=== PATIENT | female | born 2000 | race Caucasian/White ===

== ENCOUNTER 2022-01-21 23:11 | Emergency (ER) | payer BC, MEDICAID ==
[2022-01-21 23:26] VITALS: BP 110/75
--- NOTE | 2022-01-21 23:56 | ED Head Injury ---
General Chief Complaint: Head/Cervical Problems Stated Complaint: POSS CONCUSSION,FALL OUT OF CHAIR Nursing Triage Note: pt presents with reports of falling backwards while in chair around 2100. pt stated "i dont know if i hit my head or not but i think i have a concussion". pt reports photophobia, h/a and nausea since the fall. 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 DID NOT REPORT TO EMPLOYER FINISHED HER SHIFT, GOT OFF WORK AT 2200 AND THEN CAME HERE HAS NOT TAKEN ANYTHING FOR PAIN LMP--NOW. PCP: ALFREDO HARRIS AT [place]. PT IS PSU STUDENT Allergies and Home Medications Allergies Coded Allergies: No Known Drug Allergies (Unverified , 01/21/22) Patient Home Medication List Home Medication List Reviewed: Yes Review of Systems Review of Systems Constitutional: see HPI, dizziness Eyes: No Symptoms Reported Ears, Nose, Mouth, Throat: no symptoms reported Respiratory: no symptoms reported Cardiovascular: no symptoms reported Gastrointestinal: see HPI, nausea; No vomiting Genitourinary: no symptoms reported : No LMP: Jan 21, 2022 Musculoskeletal: see HPI, neck pain Skin: no symptoms reported Psychiatric/Neurological: See HPI; Denies Cognitive Dysfunction; Headache; Denies Numbness, Denies Petit Mal Seizures, Denies Tingling, Denies Tonic Clonic Seizures, Denies Weakness Endocrine: No Symptoms Reported Hematologic/Lymphatic: No Symptoms Reported Past Xlysklx-Ssdngc-Cavwaj Hx Patient Social History Tobacco Use?: No Substance use?: No Alcohol Use?: No Pt feels they are or have been: No Immunizations Up To Date Influenza Vaccine Up-to-Date: No; Not Current First/Initial COVID19 Vaccinat: unknown date COVID19 Vaccine [employer] 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: [employer] Seasonal Allergies Seasonal Allergies: Yes Past Medical History Surgeries: No Respiratory: Yes Asthma Cardiac: No Neurological: No : No Last Menstrual Period: Jan 21, 2022 Reproductive Disorders: No Genitourinary: No Gastrointestinal: No Musculoskeletal: No Endocrine: No HEENT: No (GLASSES) Cancer: No Psychosocial: Yes Anxiety, Depression Integumentary: No Blood Disorders: No Physical Exam Vital Signs Vital Signs - First Documented 01/21/22 23:26 Temp 37.0 Pulse 89 Resp 18 B/P (MAP) 110/75 (87) Pulse Ox 99 Capillary Refill : Height, Weight, BMI Height: '" Weight: lbs. oz. kg; BMI Method: General Appearance: WD/WN, no apparent distress HEENT: PERRL/EOMI, normal ENT inspection, TMs normal, pharynx normal, other (NO EXTERNAL EVIDENCE OF TRAUMA. DIFFUSE TENDERNESS TO BACK AND SIDES OF HEAD) Neck: tender lateral, tender midline, other (DIFFUSE POSTERIOR NECK TENDERNESS) Cardiovascular: regular rate, rhythm, no murmur Respiratory: normal breath sounds, no respiratory distress, no accessory muscle use Gastrointestinal: non tender, soft Back: normal inspection, no CVA tenderness, no vertebral tenderness Extremities: normal range of motion, non-tender, normal inspection, no pedal edema, no calf tenderness, normal capillary refill Psychiatric: alert, oriented x 3 Crainal Nerves: normal hearing, normal speech, PERRL Coordination/Gait: normal gait Motor/Sensory: no motor deficit, no sensory deficit Skin: normal color, warm/dry; No ecchymosis; other (NO EXTERNAL EVIDENCE OF TRAUMA ANYWHERE) Nancy Coma Score Best Eye Response: (4) Open Spontaneously Best Verbal Response: (5) Oriented Best Motor Response: (6) Obeys Commands Fountain Total: 15 Progress/Results/Core Measures Results/Orders My Orders Orders - GOPI SHARMA DO Ct Head/Cervical Spine Wo (01/21/22 23:49) Vital Signs/I&O 01/21/22 23:26 Temp 37.0 Pulse 89 Resp 18 B/P (MAP) 110/75 (87) Pulse Ox 99 Blood Pressure Mean: 87 Progress Progress Note : Progress Note UNEVENTFUL ER STAY WALKS UPRIGHT AND MOVES QUICKLY WITHOUT DIFFICULTY Diagnostic Imaging Comments CT HEAD/CERVICAL SPINE--PER STAT RAD VIA FAX AT 0100 NO ACUTE PROCESS Reviewed: Reviewed by Me Departure Impression Primary Impression: Minor head injury without loss of consciousness Additional Impression: Neck muscle strain Disposition: HOME, SELF-CARE Condition: Stable Departure-Patient Inst. Decision time for Depature: 01:03 Referrals: NO,LOCAL PHYSICIAN (PCP/Family) Primary Care Physician Patient Instructions: Minor Head Injury, Adult ED, Cervical Sprain ED Add. Discharge Instructions: LOTS OF CLEAR LIQUIDS TYLENOL AND MOTRIN NEEDED FOR PAIN FOLLOW UP WITH [facility] IN 2-3 DAYS IF NO BETTER, RETURN TO ER IF WORSE All discharge instructions reviewed with patient and/or family. Voiced understanding. GOPI SHARMA DO Jan 21, 2022 23:55
--- NOTE | 2022-01-22 05:40 | Diagnostic Imaging Report ---
PROCEDURE: CT head and CT cervical spine without contrast. TECHNIQUE: Multiple contiguous axial images were obtained through the brain and cervical spine without the use of intravenous contrast. Sagittal and coronal reformations through the cervical spine were then performed. Auto Exposure Controls were utilized during the CT exam to meet ALARA standards for radiation dose reduction. INDICATION: Trauma with head and neck injuries. CT HEAD: CT images of the head were obtained. FINDINGS: Ventricles and sulci are within normal limits for size. There is no intracranial hemorrhage identified. There is no abnormal mass effect or shift of midline structures. IMPRESSION: Unremarkable CT of the head. CT CERVICAL SPINE: Multiple contiguous axial CT images of the cervical spine were obtained with sagittal and coronal reformatted images produced. FINDINGS: There is loss of normal cervical lordosis. Vertebral body heights and disc spaces are maintained. Prevertebral soft tissues are unremarkable, and there is no evidence of paraspinous hematoma. IMPRESSION: Loss of normal cervical lordosis which may be due to positioning or muscle spasm. There is, otherwise, no CT evidence of acute cervical spinal abnormality. Dictated by: Dictated on workstation # [id number]
== END 2022-01-22 01:07 | disposition home or self-care (01) ==
LOC: ER 23:16
DX: S06.0X0A Concussion without loss of consciousness, initial encounter (principal); S16.1XXA Strain of muscle, fascia and tendon at neck level, initial encounter; W07.XXXA Fall from chair, initial encounter; Y92.59 Other trade areas as the place of occurrence of the external cause; Y99.0 Civilian activity done for income or pay
CPT/HCPCS: 70450; 72125; 99281

== ENCOUNTER 2022-10-28 13:10 | Emergency (ER) | payer MEDICAID ==
[~2022-10-28] VITALS: Ht 157 cm; Wt 72.0 kg
[2022-10-28] MEDS ORDERED: MECLIZINE 25 MG (ANTIVERT) TAB PO ONE (14:15)
[2022-10-28] MEDS ORDERED: ONDANSETRON 4 MG (ZOFRAN) ORAL DISSOLVE TAB PO ONE (14:15)
--- NOTE | 2022-10-28 14:16 | ED General ---
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 ALSO COMPLAINS OF NO FEELING IN HANDS AND HANDS TENSING UP. STATES THIS HAPPENS WHEN HER K+ IS LOW. Source of Information: Patient Exam Limitations: No Limitations (ERNIE TAVAREZ) History of Present Illness Date Seen by Provider: October 28, 2022 Time Seen by Provider: 14:14 Initial Comments Patient is a 22-year-old female presents ED with dizziness, upper and lower e xtremity hand cramping. Symptoms started about 1 hour. She was laying in bed at the time. acute onset of dizziness feels like the room spinning. Appears to be more positional. She states when she moves her head to the right feels like the dizziness is worse. Nausea without vomiting. History of dizziness in the past. She started having cramping last night in her upper extremities and lower extremities. History of low potassium has taken potassium orally in the past. Not currently on potassium. She denies of any ear ringing, hearing loss, visual loss, unilateral muscle weakness or sensory changes, headache, neck pain, chest pain, cough. Denies of any recent travels. She is currently on her menstrual cycle started this past Wednesday. Denies of any excessive or heavier bleeding. She is concern for low potassium. She denies of any unilateral muscle weakness, facial droop, headache, throat pain, ear pain (ERNIE TAVAREZ) Allergies and Home Medications Allergies Coded Allergies: No Known Drug Allergies (Unverified , 01/21/22) Patient Home Medication List Home Medication List Reviewed: Yes (ERNIE TAVAREZ) Meclizine HCl (Meclizine HCl) 25 Mg Tablet, 25 MG PO Q6H Prescribed by: PIETER JACKSON on 10/28/22 151 Ondansetron (Ondansetron Odt) 4 Mg Tab.rapdis, 4 MG SL Q4H PRN for NAUSEA/VOMITING Prescribed by: PIETER JACKSON on 10/28/22 1514 Review of Systems Review of Systems Constitutional: No chills, No diaphoresis, No fever, No malaise, No weakness EENTM: No ear pain, No blurred vision, No double vision, No mouth pain, No mouth swelling, No throat pain, No throat swelling Respiratory: No cough, No short of breath, No stridor, No wheezing Cardiovascular: No chest pain Gastrointestinal: No abdominal pain, No constipation; nausea; No vomiting Genitourinary: No decreased output, No discharge Musculoskeletal: No back pain, No joint pain Skin: No change in color, No change in hair/nails (ERNIE TAVAREZ) All Other Systems Reviewed Negative Unless Noted: Yes (ERNIE TAVAREZ) Past Qvshbus-Vytbee-Yniwqk Hx Patient Social History Tobacco Use?: No Substance use?: No Alcohol Use?: Yes Alcohol Frequency: Once in a while (ERNIE TAVAREZ) Immunizations Up To Date First/Initial COVID19 Vaccinat: unknown date Second COVID19 Vaccination Ubaldo: UNKNOWN 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 (ERNIE TAVAREZ) Seasonal Allergies Seasonal Allergies: Yes (ERNIE TAVAREZ) Past Medical History Surgeries: No Respiratory: Yes Asthma Cardiac: No Neurological: No Last Menstrual Period: October 28, 2022 Reproductive Disorders: No Genitourinary: No Gastrointestinal: No Musculoskeletal: No Endocrine: No HEENT: No (GLASSES) Cancer: No Psychosocial: Yes Anxiety, Depression Integumentary: No Blood Disorders: No (ERNIE TAVAREZ) Physical Exam Vital Signs Vital Signs - First Documented 10/28/22 13:22 Temp 36.6 Pulse 76 Resp 16 B/P (MAP) 122/81 (95) Pulse Ox 97 O2 Delivery Room Air (NICKY GUERRERO MD) Vital Signs Capillary Refill : Less Than 3 Seconds (ERNIE TAVAREZ) Height, Weight, BMI Height: '" Weight: lbs. oz. kg; 29.00 BMI Method: General Appearance: No Apparent Distress, WD/WN Eyes: Bilateral Eye Normal Inspection, Bilateral Eye PERRL, Bilateral Eye EOMI HEENT: PERRL/EOMI, TMs Normal, Normal ENT Inspection, Pharynx Normal, Other (Mild rotational nystagmus right-sided head movement. Pupils reactive light) Neck: Full Range of Motion, Normal Inspection, Non Tender, Supple Respiratory: Chest Non Tender, Lungs Clear, Normal Breath Sounds, No Accessory Muscle Use, No Respiratory Distress Cardiovascular: Regular Rate, Rhythm, No Edema, No Gallop, No JVD, No Murmur Gastrointestinal: Normal Bowel Sounds, No Organomegaly, No Pulsatile Mass, Non Tender Back: Normal Inspection, No CVA Tenderness, No Vertebral Tenderness Extremity: Normal Capillary Refill, Normal Inspection, Normal Range of Motion, Non Tender Neurologic/Psychiatric: Alert, Oriented x3, No Motor/Sensory Deficits, Normal 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, 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 Norm as Tested (ERNIE TAVAREZ) Progress/Results/Core Measures Suspected Sepsis SIRS Temperature: Pulse: 76 Respiratory Rate: 16 Laboratory Tests 10/28/22 14:11: White Blood Count 6.3 Blood Pressure 122 /81 Mean: 95 Laboratory Tests 10/28/22 14:11: Creatinine 0.76, Platelet Count 377, Total Bilirubin 0.3 (ERNIE TAVAREZ) Results/Orders Lab Results Laboratory Tests Test 10/28/22 14:11 10/28/22 14:33 10/28/22 14:40 Range/Units White Blood Count 6.3 4.3-11.0 10^3/uL Red Blood Count 4.65 3.80-5.11 10^6/uL Hemoglobin 13.1 11.5-16.0 g/dL Hematocrit 40 35-52 % Mean Corpuscular Volume 85 80-99 fL Mean Corpuscular Hemoglobin 28 25-34 pg Mean Corpuscular Hemoglobin Concent 33 32-36 g/dL Red Cell Distribution Width 14.3 10.0-14.5 % Platelet Count 377 130-400 10^3/uL Mean Platelet Volume 10.6 9.0-12.2 fL Immature Granulocyte % (Auto) 0 % Neutrophils (%) (Auto) 50 42-75 % Lymphocytes (%) (Auto) 38 12-44 % Monocytes (%) (Auto) 8 0-12 % Eosinophils (%) (Auto) 4 0-10 % Basophils (%) (Auto) 1 0-10 % Neutrophils # (Auto) 3.1 1.8-7.8 10^3/uL Lymphocytes # (Auto) 2.4 1.0-4.0 10^3/uL Monocytes # (Auto) 0.5 0.0-1.0 10^3/uL Eosinophils # (Auto) 0.2 0.0-0.3 10^3/uL Basophils # (Auto) 0.0 0.0-0.1 10^3/uL Immature Granulocyte # (Auto) 0.0 0.0-0.1 10^3/uL Sodium Level 140 135-145 MMOL/L Potassium Level 3.6 3.6-5.0 MMOL/L Chloride Level 107 98-107 MMOL/L Carbon Dioxide Level 21 21-32 MMOL/L Anion Gap 12 5-14 MMOL/L Blood Urea Nitrogen 12 7-18 MG/DL Creatinine 0.76 0.60-1.30 MG/DL Estimat Glomerular Filtration Rate 115 BUN/Creatinine Ratio 16 Glucose Level 89 70-105 MG/DL Calcium Level 9.4 8.5-10.1 MG/DL Corrected Calcium 9.3 8.5-10.1 MG/DL Magnesium Level 1.7 1.6-2.4 MG/DL Total Bilirubin 0.3 0.1-1.0 MG/DL Aspartate Amino Transf (AST/SGOT) 17 5-34 U/L Alanine Aminotransferase (ALT/SGPT) 12 0-55 U/L Alkaline Phosphatase 89 40-136 U/L Total Protein 7.2 6.4-8.2 GM/DL Albumin 4.1 3.2-4.5 GM/DL Urine Test NEGATIVE NEGATIVE Urine Color YELLOW Urine Clarity CLOUDY Urine pH 7.5 5-9 Urine Specific [place] 1.020 1.016-1.022 Urine Protein NEGATIVE NEGATIVE Urine Glucose (UA) NEGATIVE NEGATIVE Urine Ketones NEGATIVE NEGATIVE Urine Nitrite NEGATIVE NEGATIVE Urine Bilirubin NEGATIVE NEGATIVE Urine Urobilinogen 0.2 < = 1.0 MG/DL Urine Leukocyte Esterase NEGATIVE NEGATIVE Urine RBC (Auto) NEGATIVE NEGATIVE Urine RBC 0-2 /HPF Urine WBC NONE /HPF Urine Squamous Epithelial Cells 2-5 /HPF Urine Crystals NONE /LPF Urine Bacteria NEGATIVE /HPF Urine Casts NONE /LPF Urine Mucus NEGATIVE /LPF Urine Culture Indicated NO (NICKY GUERRERO MD) Vital Signs/I&O 10/28/22 10/28/22 13:22 15:35 Temp 36.6 Pulse 76 78 Resp 16 16 B/P (MAP) 122/81 (95) 106/76 Pulse Ox 97 98 O2 Delivery Room Air Room Air (NICKY GUERRERO MD) Vital Signs/I&O Capillary Refill : Less Than 3 Seconds (ERNIE TAVAREZ) Blood Pressure Mean: 95 Departure Communication (PCP) Patient reports acute onset of dizziness. This occurred about 30 minutes before arrival. She describes the room spinning worse with right-sided head movement. She reports cramping in her upper and lower extremities. Cramping in her lower abdomen. Currently on her menstrual cycle. she felt like her hands were cramping concerning for low potassium. History of low potassium. Patient on arrival without any focal neural deficits. She denies of any headache, visual loss, blurry vision, ear pain, ear ringing, hearing loss. Patient denies chest pain or shortness of breath. No history of heart disease. No urinary symptoms. Currently on her menstrual cycle and denies of any worsening vaginal bleeding. Differential diagnosis of peripheral vertigo, electrolyte abnormality, central vertigo, otitis media. Attempted Erwinna-Hallpike with some rotational nystagmus with right-sided head movement. Attempted Sepideh's maneuver with some improvement. She was given meclizine and Zofran for the dizziness. She has no focal neural deficits suggesting stroke or central lesion. she denies of any injury to her head or neck. She has no urinary symptoms. No ear ringing, hearing loss or recent upper respiratory infection. Bilateral TMs clear. No recent travels. CBC, CMP was ordered which was grossly unremarkable. Urinalysis negative for infection. Urinalysis negative for . Did offer something for her abdominal cramping she refused. She states the cramping of her upper and lower extremities has improved. Unclear etiology of the cramping. No evidence suggesting electrolyte abnormality. No acute neurological findings suggesting emergent CT scan. Patient has been playing on her phone during her stay. She seems to be getting around much better. Patient with a steady gait.. she states her symptoms appear to be improving. No sinus tenderness suggesting sinusitis. No evidence suggesting Mnire disease, labyrinthitis. Will discharge with meclizine and Zofran to help with symptoms. Appears to be more peripheral vertigo due to presentation and current complaint. Worse with position changes. recommend following up with ENT Dr. Childress for further evaluation of the vertigo. If any worsening symptoms return back to ED for further evaluation. Discussed with patient and family at bedside (ERNIE TAVAREZ) Impression Primary Impression: Vertigo Disposition: 01 HOME, SELF-CARE Condition: Stable Departure-Patient Inst. Decision time for Depature: 15:13 (ERNIE TAVAREZ) Referrals: AMBROCIO HARRIS APRN (PCP) Primary Care Physician ABDI CHILDRESS MD Patient Instructions: Vertigo (a Type of Dizziness) (DC) Add. Discharge Instructions: Take meclizine for dizziness. Zofran for nausea. Recommend anti-inflammatories for your abdominal cramping initial pain. Recommend ENT outpatient follow-up if dizziness progresses. Return back to ED if symptoms worsen such as headache, unilateral muscle weakness or sensory changes, loss of vision All discharge instructions reviewed with patient and/or family. Voiced understanding. Scripts Ondansetron (Ondansetron Odt) 4 Mg Tab.rapdis 4 MG SL Q4H PRN for NAUSEA/VOMITING, #8 TAB Prov: ERNIE TAVAREZ 10/28/22 Meclizine HCl (Meclizine HCl) 25 Mg Tablet 25 MG PO Q6H, #14 TAB Prov: ERNIE TAVAREZ 10/28/22 Work/School Note: Work Release Form Date Seen in the Emergency Department: October 28, 2022 Return to Work: October 31, 2022 ATTENDING PHYSICIAN NOTE: I was physically present as attending physician in the emergency department during the care of this patient, but I was not directly involved in the decision making or delivery of care for this patient. (NICKY GUERRERO MD) ERNIE TAVAREZ October 28, 2022 14:16 NICKY GUERRERO MD October 30, 2022 06:27
[2022-10-28 14:17] LABS: BASOPHILS % (AUTO) 1 % (0-10); EOSINOPHILS # (AUTO) 0.2 10^3/uL (0.0-0.3); EOSINOPHILS % (AUTO) 4 % (0-10); HEMATOCRIT 40 % (35-52); HEMOGLOBIN 13.1 g/dL (11.5-16.0); LYMPHOCYTES # (AUTO) 2.4 10^3/uL (1.0-4.0); LYMPHOCYTES % (AUTO) 38 % (12-44); MEAN CORPUSCULAR HEMOGLOBIN 28 pg (25-34); MEAN CORPUSCULAR HGB CONC 33 g/dL (32-36); MEAN CORPUSCULAR VOLUME 85 fL (80-99); MEAN PLATELET VOLUME 10.6 fL (9.0-12.2); MONOCYTES # (AUTO) 0.5 10^3/uL (0.0-1.0); MONOCYTES % (AUTO) 8 % (0-12); NEUTROPHILS # (AUTO) 3.1 10^3/uL (1.8-7.8); NEUTROPHILS % (AUTO) 50 % (42-75); PLATELET COUNT 377 10^3/uL (130-400); WHITE BLOOD COUNT 6.3 10^3/uL (4.3-11.0)
[2022-10-28 14:18] LABS: ALBUMIN 4.1 GM/DL (3.2-4.5); POTASSIUM 3.6 MMOL/L (3.6-5.0)
[2022-10-28 14:19] LABS: CALCIUM 9.4 MG/DL (8.5-10.1)
[2022-10-28 14:20] LABS: TOTAL PROTEIN 7.2 GM/DL (6.4-8.2)
[2022-10-28 14:22] LABS: BILIRUBIN,TOTAL 0.3 MG/DL (0.1-1.0)
[2022-10-28 14:24] LABS: CREATININE SERUM 0.76 MG/DL (0.60-1.30)
[2022-10-28 14:27] LABS: MAGNESIUM 1.7 MG/DL (1.6-2.4)
[2022-10-28 14:43] LABS: BILIRUBIN,URINE NEGATIVE (NEGATIVE); CLARITY,URINE CLOUDY; COLOR,URINE YELLOW; GLUCOSE, URINE (UA) NEGATIVE (NEGATIVE); KETONES,URINE NEGATIVE (NEGATIVE); LEUKOCYTE ESTERASE ,URINE NEGATIVE (NEGATIVE); NITRITE,URINE NEGATIVE (NEGATIVE); PH,URINE 7.5 (5-9); PROTEIN,URINE NEGATIVE (NEGATIVE)
[2022-10-28 14:59] LABS: BACTERIA,URINE NEGATIVE /HPF; RBC,URINE 0-2 /HPF
[2022-10-28] MEDS ORDERED: MECL-149 PO (15:14)
[2022-10-28] MEDS ORDERED: ONDA4TAB11 SL (15:14)
[2022-10-28 15:35] VITALS: BP 106/76
== END 2022-10-28 15:35 | disposition home or self-care (01) ==
LOC: EDUNIT# 13:10 → ER 13:12
DX: R42 Dizziness and giddiness (principal); R10.30 Lower abdominal pain, unspecified; R25.2 Cramp and spasm; R11.0 Nausea
CPT/HCPCS: 36415; 80053; 81000; 83735; 84703; 85025; 99283

== ENCOUNTER 2022-12-13 22:56 | Emergency (ER) | payer MEDICAID ==
[~2022-12-13] VITALS: Ht 157.5 cm; Wt 74.8 kg
[~2022-12-13 22:56] MED LIST: MECL-149 PO; ONDA4TAB11 SL
[2022-12-14 00:05] LABS: BILIRUBIN,URINE NEGATIVE (NEGATIVE); CLARITY,URINE CLEAR; COLOR,URINE YELLOW; GLUCOSE, URINE (UA) NEGATIVE (NEGATIVE); KETONES,URINE NEGATIVE (NEGATIVE); LEUKOCYTE ESTERASE ,URINE NEGATIVE (NEGATIVE); NITRITE,URINE NEGATIVE (NEGATIVE); PH,URINE 6.5 (5-9); PROTEIN,URINE NEGATIVE (NEGATIVE)
[2022-12-14 00:07] LABS: BASOPHILS % (AUTO) 0 % (0-10); EOSINOPHILS # (AUTO) 0.3 10^3/uL (0.0-0.3); EOSINOPHILS % (AUTO) 3 % (0-10); HEMATOCRIT 36 % (35-52); LYMPHOCYTES % (AUTO) 34 % (12-44); MEAN CORPUSCULAR HEMOGLOBIN 28 pg (25-34); MEAN CORPUSCULAR HGB CONC 33 g/dL (32-36); MEAN CORPUSCULAR VOLUME 85 fL (80-99); MEAN PLATELET VOLUME 10.4 fL (9.0-12.2); MONOCYTES # (AUTO) 0.8 10^3/uL (0.0-1.0); MONOCYTES % (AUTO) 9 % (0-12); NEUTROPHILS # (AUTO) 4.7 10^3/uL (1.8-7.8); NEUTROPHILS % (AUTO) 54 % (42-75); PLATELET COUNT 342 10^3/uL (130-400); WHITE BLOOD COUNT 8.7 10^3/uL (4.3-11.0)
[2022-12-14 00:13] LABS: BACTERIA,URINE TRACE /HPF; SQUAMOUS EPITHELIAL CELL,UR 0-2 /HPF
[2022-12-14 00:22] LABS: AMPHETAMINE SCREEN, URINE NEGATIVE (NEGATIVE); BARBITURATE SCREEN URINE NEGATIVE (NEGATIVE); BENZODIAZEPINES SCREEN URINE NEGATIVE (NEGATIVE); CANNABINOID SCREEN, URINE NEGATIVE (NEGATIVE); COCAINE SCREEN URINE NEGATIVE (NEGATIVE); METHADONE STAT NEGATIVE (NEGATIVE); OPIATE SCREEN URINE NEGATIVE (NEGATIVE); OXYCODONE STAT NEGATIVE (NEGATIVE); PROPOXYPHENE STAT NEGATIVE (NEGATIVE); TRICYCLIC ANTIDEPRESSANTS SCRE NEGATIVE (NEGATIVE)
[2022-12-14 00:28] LABS: ALANINE AMINOTRANSFERASE 12 U/L (0-55); ALKALINE PHOSPHATASE 76 U/L (40-136); BILIRUBIN,TOTAL 0.1 MG/DL (0.1-1.0); BUN/CREATININE RATIO 12; CALCIUM 9.1 MG/DL (8.5-10.1); CARBON DIOXIDE 20 MMOL/L (21-32); CHLORIDE 109 MMOL/L (98-107); CREATININE SERUM 0.84 MG/DL (0.60-1.30); GFR ESTIMATED 102; GLUCOSE 99 MG/DL (70-105); MAGNESIUM 1.8 MG/DL (1.6-2.4); POTASSIUM 3.4 MMOL/L (3.6-5.0); SODIUM 139 MMOL/L (135-145); TOTAL PROTEIN 6.9 GM/DL (6.4-8.2)
[2022-12-14 00:42] LABS: ACETAMINOPHEN < 10 UG/ML (10-30)
[2022-12-14 00:48] LABS: TSH (THYROID ANALYZER) 4.04 UIU/ML (0.35-4.94)
--- NOTE | 2022-12-14 01:18 | ED General ---
General Chief Complaint: General Problems/Pain Stated Complaint: POSS PANIC ATTACK,POSS SEIZURE,BODY TICKS Nursing Triage Note: pt to room by wheelchair with significant other. pt reports she has had "ticks" that started a few years ago and has not had them diagnosed. states this evening at approx 2230 she had an episode of "ticks" she could not stop and could not walk. pt states she remembers all this happening and had no LOC. pt SO states he helped her to bathroom, she dry heaved over the toilet on her knees and fell to her right side. denies any injury from this fall. denies head injury or LOC again. pt reports hx of asthma, anxiety, depression. pt is A&Ox4, speech normal on arrival Allergies and Home Medications Allergies Coded Allergies: No Known Drug Allergies (Unverified , 01/21/22) Patient Home Medication List Meclizine HCl (Meclizine HCl) 25 Mg Tablet, 25 MG PO Q6H Prescribed by: PIETER JACKSON on 10/28/22 1514 Ondansetron (Ondansetron Odt) 4 Mg Tab.rapdis, 4 MG SL Q4H PRN for NAUSEA/VOMITING Prescribed by: PIETER JACKSON on 10/28/22 1514 Past Jbwfnil-Vrtqum-Szctex Hx Immunizations Up To Date First/Initial COVID19 Vaccinat: unknown date Second COVID19 Vaccination Ubaldo: UNKNOWN Seasonal Allergies Seasonal Allergies: Yes Past Medical History Surgeries: No Respiratory: Yes Asthma Cardiac: No Neurological: No Reproductive Disorders: No Genitourinary: No Gastrointestinal: No Musculoskeletal: No Endocrine: No HEENT: No (GLASSES) Cancer: No Psychosocial: Yes Anxiety, Depression Integumentary: No Blood Disorders: No Physical Exam Vital Signs Vital Signs - First Documented 12/13/22 23:08 Temp 36.8 Pulse 96 Resp 14 B/P (MAP) 139/86 (103) Pulse Ox 97 Capillary Refill : Height, Weight, BMI Height: '" Weight: lbs. oz. kg; 30.00 BMI Method: Progress/Results/Core Measures Suspected Sepsis SIRS Temperature: Pulse: 96 Respiratory Rate: 14 Laboratory Tests 12/13/22 23:55: White Blood Count 8.7 Blood Pressure 139 /86 Mean: 103 Laboratory Tests 12/13/22 23:55: Creatinine 0.84, Platelet Count 342, Total Bilirubin 0.1 Results/Orders Lab Results Laboratory Tests Test 12/13/22 23:55 Range/Units White Blood Count 8.7 4.3-11.0 10^3/uL Red Blood Count 4.22 3.80-5.11 10^6/uL Hemoglobin 12.0 11.5-16.0 g/dL Hematocrit 36 35-52 % Mean Corpuscular Volume 85 80-99 fL Mean Corpuscular Hemoglobin 28 25-34 pg Mean Corpuscular Hemoglobin Concent 33 32-36 g/dL Red Cell Distribution Width 14.5 10.0-14.5 % Platelet Count 342 130-400 10^3/uL Mean Platelet Volume 10.4 9.0-12.2 fL Immature Granulocyte % (Auto) 0 % Neutrophils (%) (Auto) 54 42-75 % Lymphocytes (%) (Auto) 34 12-44 % Monocytes (%) (Auto) 9 0-12 % Eosinophils (%) (Auto) 3 0-10 % Basophils (%) (Auto) 0 0-10 % Neutrophils # (Auto) 4.7 1.8-7.8 10^3/uL Lymphocytes # (Auto) 3.0 1.0-4.0 10^3/uL Monocytes # (Auto) 0.8 0.0-1.0 10^3/uL Eosinophils # (Auto) 0.3 0.0-0.3 10^3/uL Basophils # (Auto) 0.0 0.0-0.1 10^3/uL Immature Granulocyte # (Auto) 0.0 0.0-0.1 10^3/uL Urine Color YELLOW Urine Clarity CLEAR Urine pH 6.5 5-9 Urine Specific [place] 1.015 L 1.016-1.022 Urine Protein NEGATIVE NEGATIVE Urine Glucose (UA) NEGATIVE NEGATIVE Urine Ketones NEGATIVE NEGATIVE Urine Nitrite NEGATIVE NEGATIVE Urine Bilirubin NEGATIVE NEGATIVE Urine Urobilinogen 0.2 < = 1.0 MG/DL Urine Leukocyte Esterase NEGATIVE NEGATIVE Urine RBC (Auto) NEGATIVE NEGATIVE Urine RBC NONE /HPF Urine WBC NONE /HPF Urine Squamous Epithelial Cells 0-2 /HPF Urine Crystals NONE /LPF Urine Bacteria TRACE /HPF Urine Casts NONE /LPF Urine Mucus SMALL H /LPF Urine Culture Indicated NO Sodium Level 139 135-145 MMOL/L Potassium Level 3.4 L 3.6-5.0 MMOL/L Chloride Level 109 H 98-107 MMOL/L Carbon Dioxide Level 20 L 21-32 MMOL/L Anion Gap 10 5-14 MMOL/L Blood Urea Nitrogen 10 7-18 MG/DL Creatinine 0.84 0.60-1.30 MG/DL Estimat Glomerular Filtration Rate 102 BUN/Creatinine Ratio 12 Glucose Level 99 70-105 MG/DL Calcium Level 9.1 8.5-10.1 MG/DL Corrected Calcium 9.1 8.5-10.1 MG/DL Magnesium Level 1.8 1.6-2.4 MG/DL Total Bilirubin 0.1 0.1-1.0 MG/DL Aspartate Amino Transf (AST/SGOT) 12 5-34 U/L Alanine Aminotransferase (ALT/SGPT) 12 0-55 U/L Alkaline Phosphatase 76 40-136 U/L Total Protein 6.9 6.4-8.2 GM/DL Albumin 4.0 3.2-4.5 GM/DL TSH [place] Testing 4.04 0.35-4.94 UIU/ML Urine Opiates Screen NEGATIVE NEGATIVE Urine Oxycodone Screen NEGATIVE NEGATIVE Urine Methadone Screen NEGATIVE NEGATIVE Urine Propoxyphene Screen NEGATIVE NEGATIVE Acetaminophen Level < 10 L 10-30 UG/ML Urine Barbiturates Screen NEGATIVE NEGATIVE Ur Tricyclic Antidepressants Screen NEGATIVE NEGATIVE Urine Phencyclidine Screen NEGATIVE NEGATIVE Urine Amphetamines Screen NEGATIVE NEGATIVE Urine Methamphetamines Screen NEGATIVE NEGATIVE Urine Benzodiazepines Screen NEGATIVE NEGATIVE Urine Cocaine Screen NEGATIVE NEGATIVE Urine Cannabinoids Screen NEGATIVE NEGATIVE Serum Alcohol < 10 <10 MG/DL My Orders Orders - GOPI SHARMA DO Ed Iv/Invasive Line Start (12/13/22 23:35) Urine Bedside (12/13/22 23:35) Monitor-Rhythm Ecg Trace Only (12/13/22 23:35) Acetaminophen (12/13/22 23:35) Alcohol (12/13/22 23:35) Cbc With Automated Diff (12/13/22 23:35) Comprehensive Metabolic Panel (12/13/22 23:35) Drug Screen Stat (Urine) (12/13/22 23:35) Magnesium (12/13/22 23:35) Thyroid Analyzer (12/13/22 23:35) Ua Culture If Indicated (12/13/22 23:35) Vital Signs/I&O 12/13/22 23:08 Temp 36.8 Pulse 96 Resp 14 B/P (MAP) 139/86 (103) Pulse Ox 97 Capillary Refill : Blood Pressure Mean: 103 Departure Impression Primary Impression: Facial tic Disposition: 01 HOME, SELF-CARE Condition: Stable Departure-Patient Inst. Decision time for Depature: 01:15 Referrals: AMBROCIO HARRIS APRN (PCP) Primary Care Physician RAMÓN BLISS DO [facility] Patient Instructions: Tourette syndrome Add. 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 Voiced understanding. GOPI SHARMA DO Dec 14, 2022 01:18
[2022-12-14 01:34] VITALS: BP 120/70
== END 2022-12-14 01:38 | disposition home or self-care (01) ==
LOC: EDUNIT# 22:56 → ER 22:58
DX: F95.8 Other tic disorders (principal)
CPT/HCPCS: 36415; 80053; 80306; 80320; 80329; 81000; 83735; 84443; 84703; 85025; 93041